=== PATIENT | female | born 1970 | race Caucasian/White ===

== ENCOUNTER → 2017-09-23 | Outpatient (CLI) | payer OTHER ==
[~2017-09-23] MED LIST: ACEBUTCAFT PO; ALBU90OI INH; AMLO5 PO; ASCO1ER; ASPI81CH PO; DIAZ5 PO; HYDHCL25 PO; LISI20 PO; LORTAB; OMEP20ER; OXYACE5T PO; PARO20 PO; PRAZ1 PO; Pepcid40 MG PO; Percocet 5-3251 EACH PO; RXOXYACE PO; Zofran Odt8 MG SL
[2017-09-24 09:07] LABS: Candida species (DNA Probe) Negative (NEGATIVE); G. vaginalis (DNA Probe) Negative (NEGATIVE); T. vaginalis (DNA Probe) Negative (NEGATIVE)
[2017-09-26 13:59] LABS: HPV Genotype 16 Not Detected (NOTDET); HPV Genotype 18 Not Detected (NOTDET)
[2017-10-11 08:51] LABS: HPV High Risk Other Not Detected (NOTDET)
== END ==
LOC: LAB SHORT 13:30 → LAB 13:30
PROVIDERS: Physician Assistant
DX: Z01.419 Encounter for gynecological examination (general) (routine) without abnormal findings (principal); Z11.3 Encounter for screening for infections with a predominantly sexual mode of transmission
CPT/HCPCS: 87480; 87491; 87510; 87591; 87624; 87660; G0145